=== PATIENT | male | born 1975 | race Caucasian/White ===

== ENCOUNTER 2016-08-10 18:22 | Emergency (ER) | payer OTHER ==
[2016-08-10 18:53] LABS: BASOPHIL 0.1 % (0-2); EOSINOPHIL 0.8 % (0-5); HCT 41.8 % (42.0-52.0); HGB 15.1 g/dl (13.2-18.0); LYMPHOCYTE 32.6 % (15-48); MCH 31.3 pg (25.0-31.0); MCHC 36.1 g/dL (32.0-36.0); MCV 86.5 fL (78.0-100.0); MONOCYTE 6.9 % (0-12); MPV 9.7 fL (6.0-9.5); NEUTROPHIL 59.6 % (41-80); PLT 281 K/uL (150-400); RBC 4.83 M/uL (4.70-6.00); RDW 12.2 % (11.5-14.0); WBC 9.7 K/uL (4.0-10.5)
[2016-08-10 19:03] LABS: ALBUMIN 4.5 g/dL (3.5-5.0); BILIRUBIN - TOTAL 0.4 mg/dL (0.1-1.0); CREATININE 1.2 mg/dL (0.7-1.2); GLOBULIN (CALCULATION) 1.9 g/dL (2.2-4.2); POTASSIUM 3.7 mmol/L (3.5-5.1); TOTAL PROTEIN 6.4 g/dL (6.4-8.3)
[2016-08-10 19:51] LABS: BILIRUBIN NEGATIVE (NEGATIVE); BLOOD NEGATIVE Ery/uL (NEGATIVE); CLARITY CLEAR (CLEAR); COLOR YELLOW (YELLOW); GLUCOSE (U) NORMAL (NORMAL); KETONE (U) NEGATIVE (NEGATIVE); LEUKOCYTES TRACE Leu/uL (NEGATIVE); NITRITE NEGATIVE (NEGATIVE); PROTEIN NEGATIVE (NEGATIVE); SPECIFIC GRAVITY <=1.005 (1.001-1.030); UROBILINOGEN 0.2 mg/dL (0.2-1.0)
[2016-08-10 19:56] LABS: SQUAMOUS EPITHELIAL CELLS RARE; URINARY WBC RARE
== END 2016-08-10 22:14 | disposition home or self-care (01) ==
LOC: FER 18:22
PROVIDERS: Nurse Practitioner
DX: K29.71 Gastritis, unspecified, with bleeding (principal); N20.0 Calculus of kidney; K21.9 Gastro-esophageal reflux disease without esophagitis; F17.210 Nicotine dependence, cigarettes, uncomplicated; Z79.82 Long term (current) use of aspirin
CPT/HCPCS: 36415; 80053; 81001; 82150; 83690; 85025; Q9967